=== PATIENT | female | born 2000 | race Caucasian/White ===

== ENCOUNTER 2020-02-20 17:48 | Emergency (ER) | payer MEDICAID ==
[~2020-02-20] VITALS: Ht 167.6 cm; Wt 62.0 kg
[2020-02-20] MEDS ORDERED: ACETAMINOPHEN 650MG/20.3ML UDC PO ONE (19:30)
[2020-02-20 21:22] VITALS: BP 110/78
== END 2020-02-20 21:27 | disposition home or self-care (01) ==
LOC: ER 17:48
DX: S09.8XXA Other specified injuries of head, initial encounter (principal); S60.414A Abrasion of right ring finger, initial encounter; W18.39XA Other fall on same level, initial encounter; W23.0XXA Caught, crushed, jammed, or pinched between moving objects, initial encounter; Y93.89 Activity, other specified; Y92.89 Other specified places as the place of occurrence of the external cause
CPT/HCPCS: 73140; 81025; 82962; 93005; 99284